=== PATIENT | female | born 1985 | race Caucasian/White ===

== ENCOUNTER 2020-05-28 15:32 | Emergency (ER) | payer BC ==
[~2020-05-28] VITALS: Ht 162.6 cm; Wt 81.2 kg
[2020-05-28 15:49] VITALS: BP_SYST 107
--- NOTE | 2020-05-28 16:12 | NUR ---
Patient to ER bed 1 to gown for evaluation. Side rails up. Report given to TREVOR Young.
--- NOTE | 2020-05-28 16:12 | NUR ---
Patient came from home for evaluation. She reports taking a home test on Thursday with a positive result. She has been trying to concieve for the past 2 months with her partner. Patient reports waking up this morning with abdmonial cramps and bleeding. She took a home test and it was positive. Patient consulted her insurance telephone triage and was instructed to come in for evaluation.
--- NOTE | 2020-05-28 16:20 | NUR ---
ER Dr. Curry at bedside examining patient.
[2020-05-28 16:23] VITALS: BP_SYST 107
--- NOTE | 2020-05-28 16:23 | NUR ---
Patient given written and verbal discharge instructions and verbalizes understanding. ER MD discussed with patient the results and treatment provided. Patient in stable condition. ID arm band removed. Patient educated on pain management and to follow up with PMD. Pain Scale 0/10. Opportunity for questions provided and answered. Medication side effect fact sheet provided.
== END 2020-05-28 16:23 | disposition home or self-care (01) ==
LOC: SED 15:32
DX: O03.9 Complete or unspecified spontaneous abortion without complication (principal); Z3A.01 Less than 8 weeks gestation of pregnancy
CPT/HCPCS: 81002; 81025; 99282